=== PATIENT | female | born 1935 | race Caucasian/White ===

== ENCOUNTER 2016-11-18 08:24 | Outpatient (CLI) | payer MEDICARE, OTHER | END 2016-11-18 08:25 | disposition home or self-care (01) | DX: Z12.31 Encounter for screening mammogram for malignant neoplasm of breast (principal) ==

== ENCOUNTER 2016-12-10 10:58 | Day surgery (SDC) | payer MEDICARE, OTHER ==
[2016-12-10] MEDS ORDERED: LACTATED RINGERS 1,000 ML IV ONE (11:08)
[2016-12-10] MEDS ORDERED: fentaNYL 250 MCG/5 ML VIAL IVP ONE (12:40)
[2016-12-10] MEDS ORDERED: MIDAZOLAM 2 MG/2 ML VIAL IVP ONE (12:40)
[2016-12-10] MEDS ORDERED: BENZOCAINE/TETRACAINE/BUTAMBEN SPRAY 56 GM TOP ONE (12:47)
== END 2016-12-10 10:59 | disposition home or self-care (01) ==
PROC: 0DBL8ZX Excision of Transverse Colon, Via Natural or Artificial Opening Endoscopic, Diagnostic (ICD-10-PCS; 2016-12-10)
PROC: 0DBN8ZX Excision of Sigmoid Colon, Via Natural or Artificial Opening Endoscopic, Diagnostic (ICD-10-PCS; 2016-12-10)
PROC: 0DBP8ZX Excision of Rectum, Via Natural or Artificial Opening Endoscopic, Diagnostic (ICD-10-PCS; 2016-12-10)
PROC: 0DBM8ZX Excision of Descending Colon, Via Natural or Artificial Opening Endoscopic, Diagnostic (ICD-10-PCS; 2016-12-10)
PROC: 0DB68ZX Excision of Stomach, Via Natural or Artificial Opening Endoscopic, Diagnostic (ICD-10-PCS; principal; 2016-12-10 12:00)
PROC: 0DBK8ZX Excision of Ascending Colon, Via Natural or Artificial Opening Endoscopic, Diagnostic (ICD-10-PCS; 2016-12-10 12:00)
DX: R19.4 Change in bowel habit (principal); K21.9 Gastro-esophageal reflux disease without esophagitis; R13.10 Dysphagia, unspecified; K64.8 Other hemorrhoids; K64.4 Residual hemorrhoidal skin tags; K57.30 Diverticulosis of large intestine without perforation or abscess without bleeding; E78.00 Pure hypercholesterolemia, unspecified; Z96.653 Presence of artificial knee joint, bilateral; K44.9 Diaphragmatic hernia without obstruction or gangrene
CPT/HCPCS: 43239; 45380; A9270; J3010; J7120

== ENCOUNTER 2017-02-12 14:06 | Outpatient (CLI) | payer MEDICARE, OTHER ==
--- NOTE | 2017-02-12 16:30 | XRAY Report ---
SACRUM AND COCCYX: 02/12/2017 Examination is negative for fracture. No bone lesion is seen. IMPRESSION: NORMAL SACRUM AND COCCYX. JOB #: [id number] EXT JOB #:[id number]
--- NOTE | 2017-02-12 16:35 | XRAY Report ---
AP PELVIS: 02/12/2017 CLINICAL HISTORY: An 81-year-old female who fell five days ago. COMPARISON: None. FINDINGS: A moderate degree of osteoarthritis of the right hip joint is seen. A moderate degree of n arrowing is noted. Spurring is seen along the lateral aspect of the right acetabulum. Spurring is see n along the medial aspect of the right acetabulum. Mild bone eburnation is seen along the lateral asp ect of the right femoral head. The pubis and ischium appear intact. The left hip demonstrates minimal osteoarthritis with minor lateral joint space narrowing. The SI joints are normal. Sclerotic density is seen superimposed over the right ilium. This most likely represents calcified granulomatous lymph node. IMPRESSION: 1. NO ACUTE ABNORMALITY. 2. MODERATE DEGREE OF OSTEOARTHRITIS OF THE RIGHT HIP. 3. MINIMAL OSTEOARTHRITIS OF THE SI JOINTS AND LEFT HIP. JOB #: [id number] EXT JOB #:[id number]
--- NOTE | 2017-02-14 07:08 | XRAY Report ---
LUMAR SPINE 3 VIEWS 02/12/2017 Mild vascular calcification of the abdominal aorta and its iliac branches. Five nonrib-bearing lumbar-type vertebrae are noted. Anterior spurring is seen in the lumbar spine. Bridging osteophytes are noted at L1-2 and L2-3. Minimal posterior disk space narrowing is detected at all levels of the lumbar spine. Compression fracture of mild degree is noted at T12. This compression fracture is of questionable age. Mild loss of height of T12 is noted amounting to 20%. No evidence of central spinal canal compromise is seen. IMPRESSION: MILD OSTEOARTHRITIS OF THE LUMBAR SPINE. MILD COMPRESSION FRACTURE OF T12 OF QUESTIONABLE AGE IS SEEN. COMMENT: Dr. Faust informed patient's physician, Dr. Yang of the above findings on 02/12/2017 at 3 p.m. JOB #: [id number] EXT JOB #: [id number] IRENE
== END 2017-02-12 14:07 | disposition home or self-care (01) ==
LOC: DI 14:06
PROVIDERS: ATTEND Internal Medicine
DX: M16.11 Unilateral primary osteoarthritis, right hip (principal); M16.12 Unilateral primary osteoarthritis, left hip; M47.896 Other spondylosis, lumbar region; M48.54XA Collapsed vertebra, not elsewhere classified, thoracic region, initial encounter for fracture
CPT/HCPCS: 72100; 72170; 72220

== ENCOUNTER 2017-03-29 09:09 | Outpatient (CLI) | payer MEDICARE, OTHER ==
--- NOTE | 2017-03-29 14:38 | DEXA Report ---
DEXA SCAN: 03/29/2017 CLINICAL INDICATION: Postmenopausal. TECHNIQUE: Dual energy x-ray absorptiometry (DXA) was performed on a Canv[employer] system. Regions measured are the AP spine, femoral neck, and, if needed, forearm. COMPARISON: None. In accordance with the International Society for Clinical Densitometry (ISCD) guidelines, data from previous exams may be reanalyzed using current recommendations and techniques. This is done to allow a more accurate basis for comparison with the current study. FINDINGS: The data for the lumbar spine is as follows: REGION BMD (g/cm/cm) T-SCORE Z-SCORE L1 1.107 -0.2 1.6 L2 1.221 0.2 1.9 L3 1.329 1.1 2.8 L4 1.344 1.2 3.0 TOTAL 1.253 0.6 2.4 NOTE: All evaluable vertebrae are used for classification. The data for the hip is as follows: REGION BMD (g/cm/cm) T-SCORE Z-SCORE Neck 1.139 0.7 2.9 TOTAL 1.156 1.2 3.2 NOTE: The femoral neck or total proximal femur, whichever is lowest, is used for classification. IMPRESSION: THE WHO CLASSIFICATION BASED ON THE INTERNATIONAL REFERENCE STANDARD IS NORMAL. THE FRACTURE RISK IS NOT INCREASED. RECOMMENDATION: Patients with diagnosis of osteoporosis or osteopenia should have regular bone mineral density assessment. For those eligible for Medicare, routine testing is allowed once every 2 years. Testing frequency can be increased for patients who have rapidly progressing disease or for those who are receiving medical therapy to restore bone mass. COMMENT: World Health Organization (WHO) definitions for osteoporosis and osteopenia: NORMAL BMD: T-score at -1.0 or higher, fracture risk is low. OSTEOPENIA BMD: T-score between -1.0 and -2.5, fracture risk is increased. OSTEOPOROSIS BMD: T-score at -2.5 or lower, fracture risk high. National Osteoporosis Foundation recommends: 1. Obtain adequate dietary calcium (at least 1200 mg per day) and vitamin D (400 -800 international units per day). 2. Participate, as appropriate, in regular weightbearing and muscle- strengthening exercise. 3. Avoid tobacco use and reduce alcohol and caffeine intake. 4. For more detailed information see the website at www.NOF.org. MTDD
== END 2017-03-29 09:10 | disposition home or self-care (01) ==
LOC: DI 09:09
PROVIDERS: ATTEND Internal Medicine
DX: M81.0 Age-related osteoporosis without current pathological fracture (principal)
CPT/HCPCS: 77080

== ENCOUNTER 2022-02-13 11:10 | Day surgery (SDC) | payer MEDICARE ==
[2022-02-13] MEDS ORDERED: LACTATED RINGERS 1,000 ML IV ONE ×2 (11:40→12:45)
--- NOTE | 2022-02-13 11:59 | ANESTHESIA ---
Pre-Anesthesia VS, & Labs - Diagnosis hx of polyps - Procedure colonoscopy Vital Signs: Temp Pulse Resp BP Pulse Ox 36.4 C L 98 16 152/81 H 98 02/13/22 11:40 02/13/22 11:40 02/13/22 11:40 02/13/22 11:40 02/13/22 11:40 Height: 5 ft 2 in Weight (kg): 64.3 kg Body Mass Index: 25.9 BMI Classification: Overweight - NPO >8 hours - Is Patient ?: No Home Medications and Allergies Atorvastatin [Lovastatin] 10 mg ORAL DAILY 06/16/14 Levothyroxine Sodium [Levoxyl] 100 mcg PO DAILY 06/16/14 Multivitamin [Multivitamins] 1 each PO DAILY 09/24/15 Cholecalciferol (Vitamin D3) [Vitamin D] 2,000 unit PO DAILY 12/10/16 Allergies/Adverse Reactions: Allergies Allergy/AdvReac Type Severity Reaction Status Date / Time No Known Drug Allergies Allergy Verified 09/24/15 13:05 Anes History & Medical History - Anesthetic History Anesthesia Complications: reports: No previous complications Family history of Anesthesia Complications: Denies Family history of Malignant Hyperthermia: Denies - Medical History Cardiovascular: reports: High cholesterol Pulmonary: reports: None Gastrointestinal: reports: GERD, Colon polyps, Diverticulitis Urinary: reports: Kidney stones Musculoskeletal: reports: Osteoarthritis Endocrine/Autoimmune: reports: Type 2 diabetes, HyPOthyroidism, Other Skin: reports: None Smoking Status: Never smoker - Surgical History General: reports: Colonoscopy Eyes Ears Nose Throat (EENT): reports: Cataracts Urologic: reports: Ureterolithotomy (stones) Orthopedic: reports: Knee replacement Dermatologic: reports: Skin cancer surgery Exam General: Alert, Oriented x3, Cooperative Dental: WNL Mouth Openin Fingerbreadth Neck Mobility: Normal Mallampati classification: II Thyromental Distance: 4-6 cm Respiratory: Lungs clear Cardiovascular: Regular rate Plan Anesthesia Type: Total IV Consent for Procedure(s) Verified and Reviewed: Yes Code Status: Attempt Resuscitation ASA classification: 2-Mild systemic disease Is this case an emergency?: No
--- NOTE | 2022-02-13 12:09 | HISTORY & PHYSICAL EXAMINATION ---
Chief Complaint - Chief Complaint Chief Complaint: history of colon polyp History of Present Illness - History Obtained From Records Reviewed: yes History obtained from: pt Exam Limitations: none - History of Present Illness HPI Comment/Other: history of colon polyp. here for colon cancer surveillance. no problems History - Past Medical History Cardiovascular: reports: High cholesterol Respiratory: reports: None Endocrine/Autoimmune: reports: Type 2 diabetes, HyPOthyroidism, Other GI: reports: GERD, Colon polyps, Diverticulitis : reports: Kidney stones HEENT: reports: None, Other Psych: reports: None Musculoskeletal: reports: Osteoarthritis Derm: reports: None MRSA Hx?: No - Past Surgical History General: reports: Colonoscopy Ortho: reports: Knee replacement HEENT: reports: Cataracts Derm: reports: Skin cancer surgery Meds/Allgy - Home Medications Home Medications: Ambulatory Orders Medication Instructions Recorded Confirmed Atorvastatin [Lovastatin] 10 mg ORAL DAILY 06/16/14 12/10/16 Levothyroxine Sodium [Levoxyl] 100 mcg PO DAILY 06/16/14 12/10/16 Multivitamin [Multivitamins] 1 each PO DAILY 09/24/15 12/10/16 Cholecalciferol (Vitamin D3) 2,000 unit PO DAILY 12/10/16 12/10/16 [Vitamin D] - Allergies Allergies/Adverse Reactions: Allergies Allergy/AdvReac Type Severity Reaction Status Date / Time No Known Drug Allergies Allergy Verified 09/24/15 13:05 Review of Systems - Other Findings Other Findings: 10 pt ros as above otherwise unremarkable Exam - Vital Signs Reviewed Vital Signs: Yes Vital Signs: Vital Signs x48h Temp Pulse Resp BP Pulse Ox 02/13/22 11:40 36.4 C L 98 16 152/81 H 98 - Physical Exam General Appearance: positive: Alert Eyes Bilateral: positive: PERRL, EOMI, No scleral icterus ENT: positive: No signs of dehydration Neck: positive: No JVD, Trachea midline Respiratory: positive: No respiratory distress, Breath sounds nml Cardiovascular: positive: Regular rate & rhythm Abdomen: positive: Non-tender, No distention Neurologic/Psychiatric: positive: Oriented x3 Conclusion/Plan - Problem List (1) History of adenomatous polyp of colon Conclusion/Plan: plan colonoscopy. parq held and consent obtained
[2022-02-13] MEDS ORDERED: PROPOFOL 500 MG/50 ML 500 MG/50 ML VIAL ONE (12:27)
[2022-02-13] MEDS ORDERED: GLYCOPYRROLATE 1 MG/5 ML VIAL ONE (12:37)
[2022-02-13 13:17] VITALS: BP 141/63
--- NOTE | 2022-02-13 15:20 | ANESTHESIA POST OP EVALUATION ---
Anesthesia Post Eval - Post Anesthesia Eval Vitals: Last Vital Signs Temp 36.3 C L 02/13/22 12:46 Pulse 66 02/13/22 13:16 Resp 11 L 02/13/22 13:16 BP 141/63 H 02/13/22 13:16 Pulse Ox 95 02/13/22 13:16 CV Function Including HR & BP: Stable Pain Control: Satisfactory Nausea & Vomiting: Negative Mental Status: Baseline Respiratory Status: Airway Patent Hydration Status: Satisfactory Anesthesia Complications: None
== END 2022-02-13 11:11 | disposition home or self-care (01) ==
LOC: SDS 11:10
PROVIDERS: ATTEND Surgery
PROC: 0DBH8ZZ Excision of Cecum, Via Natural or Artificial Opening Endoscopic (ICD-10-PCS; 2022-02-13)
PROC: 0DBK8ZZ Excision of Ascending Colon, Via Natural or Artificial Opening Endoscopic (ICD-10-PCS; principal; 2022-02-13 12:15)
DX: Z12.11 Encounter for screening for malignant neoplasm of colon (principal); D12.2 Benign neoplasm of ascending colon; D12.0 Benign neoplasm of cecum; K57.30 Diverticulosis of large intestine without perforation or abscess without bleeding
CPT/HCPCS: 45380; J7120

== ENCOUNTER 2022-03-18 12:44 | Outpatient (CLI) | payer MEDICARE | END 2022-03-18 12:45 | disposition home or self-care (01) | LOC: LAB.R 12:44 | PROVIDERS: ATTEND Internal Medicine | DX: E03.9 Hypothyroidism, unspecified (principal) | CPT/HCPCS: 84443 ==

== ENCOUNTER 2023-03-04 13:53 | Outpatient (CLI) | payer MEDICARE | END 2023-03-04 13:54 | disposition home or self-care (01) | LOC: NS 13:53 | PROVIDERS: ATTEND Internal Medicine | DX: E78.5 Hyperlipidemia, unspecified (principal); R15.2 Fecal urgency; Z71.3 Dietary counseling and surveillance | CPT/HCPCS: 97802 ==